=== PATIENT | male | born 1930 | race Caucasian/White ===

== ENCOUNTER 2018-05-14 10:23 | Inpatient (IN) | payer MEDICARE ==
[~2018-05-14] VITALS: Ht 175.3 cm; Wt 99.3 kg
[2018-07-14] VITALS (12 sets, daily range): BP systolic 116–154; BP diastolic 49–81; PULSE 49–64; TEMP 97.2–98
[2018-07-14] MEDS ORDERED: ASPIRIN E.C. 8181 MG PO (02:51)
[2018-07-14] MEDS ORDERED: ZOCOR5 MG PO (02:52)
[2018-07-14] MEDS ORDERED: PRINIVIL5 MG PO (02:53)
[2018-07-14] MEDS ORDERED: PRINIVIL40 MG PO (02:54)
[2018-07-14] MEDS ORDERED: SYNTHROID 0.10.15 MG PO (02:55)
[2018-07-14] MEDS ORDERED: NITROSTAT0.4 MG/TAB SL (02:55)
[2018-07-14] MEDS ORDERED: NORVASC 10MG10 MG PO (02:56)
[2018-07-14] MEDS ORDERED: ZOCOR 20MG20 MG PO (02:57)
[2018-07-15 01:43] VITALS: BP 143/60; PULSE 55; TEMP 97.3
[2018-07-15 05:35] VITALS: BP 138/65; PULSE 54; TEMP 97.3
[2018-07-15 06:54] LABS: HEMATOCRIT 42.5 % (42.0-52.0); HEMOGLOBIN 14.1 g/dl (13.5-18.0)
[2018-07-15 07:46] VITALS: BP 146/61; PULSE 58; TEMP 97.8
[2018-07-15 11:42] VITALS: BP 146/61; PULSE 63; TEMP 98.6
[2018-07-15 16:29] VITALS: BP 153/66; PULSE 64; TEMP 97.6
[2018-07-15 22:28] VITALS: BP 152/70; PULSE 68; TEMP 97.8
[2018-07-16] VITALS (7 sets, daily range): BP systolic 151–189; BP diastolic 49–84; PULSE 65–88; TEMP 97.9–98.6
[2018-07-17 03:25] VITALS: BP 174/75; PULSE 63; TEMP 98.6
[2018-07-17 03:40] VITALS: BP 174/75; PULSE 63; TEMP 98.5
[2018-07-17 04:12] VITALS: BP 139/69
[2018-07-17 06:38] VITALS: BP 139/69; PULSE 63; TEMP 98.5
[2018-07-17] MEDS ORDERED: ASPI325T6 PO (06:46)
[2018-07-17] MEDS ORDERED: NORCO 325 MG-7.1 TAB PO (06:46)
[2018-07-17] MEDS ORDERED: TYLENOL 500MG500 MG PO (06:47)
[2018-07-17] MEDS ORDERED: DULCOLAX S10 MG/SUPP RC (06:47)
[2018-07-17] MEDS ORDERED: GOOD NEIGH1200 MG/15 PO (06:47)
[2018-07-17] MEDS ORDERED: ROXICODONE 55 MG/TAB PO (06:47)
[2018-07-17] MEDS ORDERED: ZANTAC 150MG T150 MG PO (06:48)
[2018-07-17] MEDS ORDERED: SENOKOT S 50 MG1 TAB PO (06:48)
[2018-07-17 07:35] VITALS: BP 158/73; PULSE 70; TEMP 97.8
== END 2018-07-17 11:10 | DRG 470 ==
LOC: JCC 07-14 05:09
PROVIDERS: Orthopaedic Surgery
PROC: 0SRD0J9 Replacement of Left Knee Joint with Synthetic Substitute, Cemented, Open Approach (ICD-10-PCS; principal; 2018-07-14 07:30)
DX: M17.12 Unilateral primary osteoarthritis, left knee (principal); I25.10 Atherosclerotic heart disease of native coronary artery without angina pectoris; E78.5 Hyperlipidemia, unspecified; I10 Essential (primary) hypertension
CPT/HCPCS: A4314; A4315; A9284; C1713; C1776; J0690; J1100; J2250; J2405; J2704; J3010; J7120

== ENCOUNTER → 2018-07-01 | Outpatient (CLI) | payer MEDICARE, OTHER ==
[2018-07-01 13:19] LABS: HIV 1/2 Antibodies Non-Reactive; HIV-1p24 Antigen Non-Reactive
== END ==
LOC: COL.LAB 11:57
PROVIDERS: Orthopaedic Surgery
DX: Z01.812 Encounter for preprocedural laboratory examination (principal); M17.12 Unilateral primary osteoarthritis, left knee